=== PATIENT | male | born 1995 | race Caucasian/White ===

== ENCOUNTER 2017-09-03 09:34 | Emergency (ER) | payer OTHER ==
[2017-09-03 09:42] VITALS: BP 123/74; PULSE 52; RESP 16; TEMP 97.9; O2SAT 98
--- NOTE | 2017-09-03 09:53 | EDPHY ---
H & P Time Seen by Provider: 09/03/17 09:44 HPI/ROS: CHIEF COMPLAINT: Left ankle pain HISTORY OF PRESENT ILLNESS: 22-year-old male presents with left ankle pain. Yesterday evening he was skateboarding, fell off his skateboard and twisted his left ankle. He was able to walk initially. This morning he has increased pain and swelling over the lateral aspect of his ankle. No other injuries. ROS: No numbness, weakness, bleeding, syncopal episode, other injury. Past Medical/Surgical History: Denies Smoking Status: Never smoked Physical Exam: Alert and oriented, no acute distress Extremities: left ankle with swelling over the lateral malleolus. There is no posterior lateral malleolus tenderness, midfoot tenderness, or proximal fifth metatarsal tenderness. The ankle is stable and the Achilles tendon is intact. Vascular: Pedal pulses 2+ Neurologic: Ankle and foot with normal sensation and strength Skin: Intact Constitutional: Initial Vital Signs Temperature (C) 36.6 C 09/03/17 09:40 Heart Rate 52 L 09/03/17 09:40 Respiratory Rate 16 09/03/17 09:40 Blood Pressure 123/74 H 09/03/17 09:40 O2 Sat (%) 98 09/03/17 09:40 O2 Delivery Mode Room Air Allergies/Adverse Reactions: No Known Allergies Allergy (Unverified 09/03/17 09:40) Home Medications: Medication Instructions Recorded NK [No Known Home Meds] 09/03/17 Medical Decision Making - Diagnostics Imaging Results: Imaging Impressions Ankle X-Ray 09/03/17 09:42 Impression: Lateral ankle sprain. ED Course/Re-evaluation: Ankle stirrup splint placed. Departure - Departure Disposition: Home, Routine, Self-Care Clinical Impression: Left ankle sprain Qualifiers: Encounter type: initial encounter Involved ligament of ankle: tibiofibular ligament Qualified Code(s): S93.432A - Sprain of tibiofibular ligament of left ankle, initial encounter Condition: Good Instructions: Ankle Sprain (ED), Ankle Stirrup Splint (ED) Additional Instructions: Ibuprofen 600 mg 3 times daily while the pain persists. Referrals: Osorio Bond MD [Medical Doctor] - As per Instructions (Follow-up in 7-10 days if not improving.)
== END 2017-09-03 10:30 | disposition home or self-care (01) ==
DX: S93.432A Sprain of tibiofibular ligament of left ankle, initial encounter (principal); V00.131A Fall from skateboard, initial encounter; Y99.8 Other external cause status; Y93.51 Activity, roller skating (inline) and skateboarding
CPT/HCPCS: L4350